=== PATIENT | male | born 1940 | race Caucasian/White ===

== ENCOUNTER 2020-05-10 12:20 | Emergency (ER) | payer OTHER ==
--- OUTSIDE RECORDS SUMMARY | 2020-05-10 12:24 | XMS REPORT | Continuity of Care Document ---
:1940 Author Organization [facility] t Address [address] [place] [address] Dr. Massey [address] [place] [id number] Care Team Providers Name Role Phone LOIDA Attending Clinician Unavailable Problems This patient has no known problems. Allergies, Adverse Reactions, Alerts This patient has no known allergies or adverse reactions. Medications This patient has no known medications. Procedures This patient has no known procedures. Encounters Start End Encounter Admission Attending Care Care Encounter Source Date/Time Date/Time Type Type Clinicians Facility Department ID 2020-04-16 2020-04-16 Outpatient SHANIKA MARISCAL [facility] [id number] [place] 00:00:00 00:00:[address] 2020-04-15 2020-04-15 Outpatient SHANIKA MARISCAL [facility] [id number] [place] 00:00:00 00:00:[address] 2020-04-05 2020-04-05 Outpatient [facility] [id number] [place] 00:00:00 00:00:[address] 2020-03-18 2020-03-18 Outpatient [facility] [id number] [place] 00:00:00 00:00:[address] Results This patient has no known results.
--- NOTE | 2020-05-10 16:50 | RAD REPORT ---
EXAM DESCRIPTION: CT - Chest For Pe Angio - 05/10/2020 4:36 pm CLINICAL HISTORY: Chest pain. Recent cancer history;Dyspnea COMPARISON: Thorax Wo Con dated 11/03/2018; Thorax Wo Con dated 05/05/2018; Kidney Imag W/Flow F W lynda ed 03/26/2016; Abdomen Pelvis W Contrast dated 05/10/2020 TECHNIQUE: CT angiogram of the pulmonary arteries was performed with MIP. All CT scans are performed using dose optimization technique as appropriate and may include automated exposure control or mA/KV adjustment according to patient size. FINDINGS: No evidence of pulmonary thromboembolism. No acute aortic finding demonstrated. Mild diffuse COPD is present. Postsurgical changes are present right suprahilar region. No significant pericardial or pleural fluid. No concerning bony finding. Moderate to large hiatal hernia. IMPRESSION: No evidence of pulmonary thromboembolism. Mild diffuse COPD is present.
--- NOTE | 2020-05-10 16:56 | RAD REPORT ---
EXAM DESCRIPTION: CTAbdomen Pelvis W Contrast - 05/10/2020 4:36 pm CLINICAL HISTORY: Abdominal pain. cancer. Per request of Dr. Chaudhry COMPARISON: Chest Abdomen Pelvis W Cont dated 02/20/2016; Stone Protocol dated 01/12/2016; Kidney Im ag W/Flow F W dated 03/26/2016; Chest Single View dated 02/24/2016; Ct Low Dose Chest Screening dated 09/23; Thorax Wo Con dated 05/05/2018; Thorax Wo Con dated 11/03/2018 TECHNIQUE: Biphasic CT imaging of the abdomen and pelvis was performed with 100 ml non-ionic IV cont rast. All CT scans are performed using dose optimization technique as appropriate and may include automated exposure control or mA/KV adjustment according to patient size. FINDINGS: The lower lung pederson are emphysematous.Moderate to large axial hiatal hernia. The liver, spleen, pancreas, adrenal glands and kidneys are within normal limits. 5.8 cm infrarenal abdominal aortic aneurysm is present. 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 This is enlarged from 4.1 cm in 2016. No bowel obstruction, free air, free fluid or abscess. There is significant stool in the colon. Nonvi sualized appendix. No evidence of significant lymphadenopathy. Moderately severe lumbar degenerative changes. IMPRESSION: There has been significant enlargement of infrarenal abdominal aortic aneurysm since from 4.1 cm to 5.8 cm in the same anterior posterior dimension.
--- NOTE | 2020-05-10 17:43 | EDPHYS ---
Physician Documentation [facility] Name: Clay Hernández Age: 79 yrs Sex: Male : 1940 Arrival Date: 05/10/2020 Time: 12:22 Bed 26 Private MD: Tejas Chaudhry V ED Physician Alen Esparza HPI: 05/10 17:35 This 79 yrs old Male presents to ER via Ambulatory with complaints of labs. jr8 17:35 Patient stated that he was sent over by Dr. Chaudhry after having abnormal DD reading. jr8 Stated that when he saw him the other day he had some mild shortness of breath. Had two primary cancers in past both of which had been surgically removed and doing well. Denies any symptoms at this time. Dr. Chaudhry called and wanted dopplers of the lower legs and CT PE. The patient has not experienced similar symptoms in the past. The patient has been recently seen by a physician:. Historical: - Allergies: 13:01 No Known Allergies; ca1 - PMHx: 13:01 Bladder cancer; Cancer, Lung; High Cholesterol; Hypertension; Kidney stones; Parkinsons;ca1 13:01 CAD; ca1 - PSHx: 13:01 Lithotripsy; bladder sx; Lobectomy; RUL removed; ca1 - Immunization history:: Flu vaccine is up to date. - Social history:: Smoking status: Patient/guardian denies using tobacco, the patient reports quitting approximately 11 years ago. ROS: 17:35 Cardiovascular: Negative for chest pain, palpitations, and edema, Respiratory: Negative jr8 for shortness of breath, cough, wheezing, and pleuritic chest pain, Abdomen/GI: Negative for abdominal pain, nausea, vomiting, diarrhea, and constipation, Back: Negative for injury and pain, Neuro: Negative for headache, weakness, numbness, tingling, and seizure. 17:35 All other systems are negative. Exam: 17:35 Constitutional: This is a well developed, well nourished patient who is awake, alert, jr8 and in no acute distress. Neck: Trachea midline, no thyromegaly or masses palpated, and no cervical lymphadenopathy. Supple, full range of motion without nuchal rigidity, or vertebral point tenderness. No Meningismus. Chest/axilla: Normal chest wall appearance and motion. Nontender with no deformity. No lesions are appreciated. Cardiovascular: Regular rate and rhythm with a normal S1 and S2. No gallops, murmurs, or rubs. Normal PMI, no JVD. No pulse deficits. Respiratory: Lungs have equal breath sounds bilaterally, clear to auscultation and percussion. No rales, rhonchi or wheezes noted. No increased work of breathing, no retractions or nasal flaring. Abdomen/GI: Soft, non-tender, with normal bowel sounds. No distension or tympany. No guarding or rebound. No evidence of tenderness throughout. Back: No spinal tenderness. No costovertebral tenderness. Full range of motion. Skin: Warm, dry with normal turgor. Normal color with no rashes, no lesions, and no evidence of cellulitis. MS/ Extremity: Pulses equal, no cyanosis. Neurovascular intact. Full, normal range of motion. Neuro: Awake and alert, GCS 15, oriented to person, place, time, and situation. Cranial nerves II-XII grossly intact. Motor strength 5/5 in all extremities. Sensory grossly intact. Cerebellar exam normal. Normal gait. Vital Signs: 12:58 BP 134 / 84; Pulse 87; Resp 16 S; Temp 97.4(TE); Pulse Ox 98% on R/A; Weight 86.18 kg ca1 (R); Height 5 ft. 10 in. (177.80 cm) (R); Pain 0/10; 15:28 BP 145 / 85; Pulse 76; Resp 16; Pulse Ox 99% on R/A; vg1 16:30 BP 132 / 89; Pulse 77; Resp 18; Pulse Ox 98% on R/A; vg1 17:00 BP 117 / 88; Pulse 78; Resp 16; Pulse Ox 99% on R/A; vg1 12:58 Body Mass Index 27.26 (86.18 kg, 177.80 cm) ca1 MDM: 15:31 Patient medically screened. jr8 15:41 The patient's pulmonary embolism risk score was calculated as follows: No Risks (0 Pts).jr8 17:35 Data reviewed: vital signs, nurses notes, radiologic studies, CT scan, ultrasound. Data jr8 interpreted: Pulse oximetry: on room air is 98 %. Interpretation: normal. Counseling: I had a detailed discussion with the patient and/or guardian regarding: the historical points, exam findings, and any diagnostic results supporting the discharge/admit diagnosis, radiology results, the need for outpatient follow up, a manager room, to return to the emergency department if symptoms worsen or persist or if there are any questions or concerns that arise at home. ED course: Discussed with patient and Dr. Chaudhry that he does not have PE but does have significant enlargement in aortic aneurysm. Will refer to cardiology for f/u. Patient good with this. 05/10 15:57 Order name: CT Chest For PE Angio; Complete Time: 16:58 [facility] 05/10 15:57 Order name: CT Abd/Pelvis - IV Contrast Only; Complete Time: 16:58 8 05/10 15:57 Order name: IV; Complete Time: 16:14 [facility] 05/10 17:10 Order name: US Extremity Venous W Compression Harry jr8 Administered Medications: No medications were administered Disposition: 18:47 Co-signature as Attending Physician, Alen Esparza MD I agree with the assessment and kdr plan of care. Disposition: 05/10/20 17:41 Discharged to Home. Impression: Abdominal aortic aneurysm, without rupture. - Condition is Stable. - Discharge Instructions: Abdominal Aortic Aneurysm. - Medication Reconciliation Form, Thank You Letter, Antibiotic Education, Prescription Opioid Use form. - Follow up: Tejas Chaudhry MD; When: As needed; Reason: Recheck today's complaints, Continuance of care, Re-evaluation by your physician. Follow up: Maurilio Mondragon MD; When: 1 - 2 days; Reason: Recheck today's complaints, Continuance of care, Re-evaluation by your physician. - Problem is new. - Symptoms have improved. Signatures: Dispatcher [employer] EDMS Alen Esparza MD MD kdr Roszak, Josh, PA PA jr8 Marsha Andrews RN RN ca1 Sofía Quintana RN RN vg1 Corrections: (The following items were deleted from the chart) 18:06 17:41 05/10/2020 17:41 Discharged to Home. Impression: Abdominal aortic aneurysm, vg1 without rupture. Condition is Stable. Forms are Medication Reconciliation Form, Thank You Letter, Antibiotic Education, Prescription Opioid Use. Follow up: Tejas Chaudhry; When: As needed; Reason: Recheck today's complaints, Continuance of care, Re-evaluation by your physician. Follow up: Maurilio Mondragon; When: 1 - 2 days; Reason: Recheck today's complaints, Continuance of care, Re-evaluation by your physician. Problem is new. Symptoms have improved. jr8
--- NOTE | 2020-05-10 17:43 | ER ---
Nurse's Notes [facility] Name: Clay Hernández Age: 79 yrs Sex: Male : 1940 Arrival Date: 05/10/2020 Time: 12:22 Bed 26 Private MD: Tejas Chaudhry V Diagnosis: Abdominal aortic aneurysm, without rupture Presentation: 05/10 12:58 Chief complaint: Patient states: Routine blood work done 05/08/2020, was called by Dr. crys Chaudhry's office to come to the ER. Unsure which blood work result is/are abnormal. Denies pain. Denies any complaints at this time. They said Dr. Chaudhry said he wants me to get a D-dimer test. Coronavirus screen: Client denies travel out of the [place] in the last 14 days. At this time, the client does not indicate any symptoms associated with coronavirus-19. Ebola Screen: Patient negative for fever greater than or equal to 101.5 degrees Fahrenheit, and additional compatible Ebola Virus Disease symptoms Patient denies exposure to infectious person. Patient denies travel to an Ebola-affected area in the 21 days before illness onset. No symptoms or risks identified at this time. Initial Sepsis Screen: Does the patient meet any 2 criteria? No. Patient's initial sepsis screen is negative. Does the patient have a suspected source of infection? No. Patient's initial sepsis screen is negative. Risk Assessment: Do you want to hurt yourself or someone else? Patient reports no desire to harm self or others. Onset of symptoms was May 10, 2020. 12:58 Method Of Arrival: Ambulatory ca1 12:58 Acuity: GLORY 3 ca1 Historical: - Allergies: 13:01 No Known Allergies; ca1 - PMHx: 13:01 Bladder cancer; Cancer, Lung; High Cholesterol; Hypertension; Kidney stones; Parkinsons;ca1 13:01 CAD; ca1 - PSHx: 13:01 Lithotripsy; bladder sx; Lobectomy; RUL removed; ca1 - Immunization history:: Flu vaccine is up to date. - Social history:: Smoking status: Patient/guardian denies using tobacco, the patient reports quitting approximately 11 years ago. Screenin:28 Abuse screen: Denies threats or abuse. Nutritional screening: No deficits noted. vg1 Tuberculosis screening: No symptoms or risk factors identified. Fall Risk No fall in past 12 months (0 pts). No secondary diagnosis (0 pts). IV access (20 points). Ambulatory Aid- None/Bed Rest/Nurse Assist (0 pts). Gait- Normal/Bed Rest/Wheelchair (0 pts) Mental Status- Oriented to own ability (0 pts). Total Fisher Fall Scale indicates No Risk (0-24 pts). Assessment: 15:27 General: Appears in no apparent distress. distressed, Behavior is calm, cooperative. vg1 Pain: Denies pain. Neuro: Level of Consciousness is awake, alert, obeys commands, Oriented to person, place, time, situation. Cardiovascular: Patient's skin is warm and dry. Respiratory: Airway is patent Respiratory effort is even, unlabored, Breath sounds are clear bilaterally. GI: No signs and/or symptoms were reported involving the gastrointestinal system. : No signs and/or symptoms were reported regarding the genitourinary system. EENT: No signs and/or symptoms were reported regarding the EENT system. Derm: Skin is intact, Skin is pink, warm \T\ dry. Musculoskeletal: Circulation, motion, and sensation intact. 16:50 Reassessment: Patient appears in no apparent distress at this time. No changes from vg1 previously documented assessment. Patient and/or family updated on plan of care and expected duration. Pain level reassessed. Patient is alert, oriented x 3, equal unlabored respirations, skin warm/dry/pink. Patient denies pain at this time. 17:48 Reassessment: Pt up for d/c, US still at bedside. vg1 Vital Signs: 12:58 BP 134 / 84; Pulse 87; Resp 16 S; Temp 97.4(TE); Pulse Ox 98% on R/A; Weight 86.18 kg ca1 (R); Height 5 ft. 10 in. (177.80 cm) (R); Pain 0/10; 15:28 BP 145 / 85; Pulse 76; Resp 16; Pulse Ox 99% on R/A; vg1 16:30 BP 132 / 89; Pulse 77; Resp 18; Pulse Ox 98% on R/A; vg1 17:00 BP 117 / 88; Pulse 78; Resp 16; Pulse Ox 99% on R/A; vg1 12:58 Body Mass Index 27.26 (86.18 kg, 177.80 cm) ca1 ED Course: 12:22 Patient arrived in ED. am2 12:23 Tejas Chaudhry MD is Private Physician. am2 13:00 Triage completed. ca1 13:01 Arm band placed on right wrist. ca1 15:02 Sofía Quintana, RN is Primary Nurse. vg1 15:28 Patient has correct armband on for positive identification. Bed in low position. Call vg1 light in reach. Side rails up X 1. 15:31 Jordy Bach PA is PHCP. jr8 15:31 Alen Esparza MD is Attending Physician. jr8 16:[address] via wheelchair. vg1 16:38 CT Chest For PE Angio In Process Unspecified. EDMS 16:38 CT Abd/Pelvis - IV Contrast Only In Process Unspecified. EDMS 17:25 US at bedside. vg1 17:39 Tejas Chaudhry MD is Referral Physician. jr8 17:39 Maurilio Mondragon MD is Referral Physician. jr8 17:50 US leaving pt bedside. vg1 18:06 No provider procedures requiring assistance completed. IV discontinued, intact, vg1 bleeding controlled, No redness/swelling at site. Pressure dressing applied. 18:58 US Extremity Venous W Compression Harry In Process Unspecified. EDMS Administered Medications: No medications were administered Outcome: 17:41 Discharge ordered by . jr8 18:06 Discharged to home ambulatory. vg1 18:06 Condition: good 18:06 Discharge instructions given to patient, Instructed on discharge instructions, follow up and referral plans. Demonstrated understanding of instructions, follow-up care. 18:06 Patient left the ED. vg1 Signatures: Dispatcher [employer] EDMS Jordy Bach PA PA jr8 Jazmine Pichardo am2 Marsha Andrews RN RN ca1 Sofía Quintana, RN RN vg1
[2020-05-10 18:14] VITALS: TEMP 97.4
[2020-05-10 18:18] VITALS: BP 117/88; O2SAT 99
--- NOTE | 2020-05-10 19:25 | RAD REPORT ---
EXAM DESCRIPTION: US - Extrem Venous W Compress Harry - 05/10/2020 6:58 pm CLINICAL HISTORY: SWELLING Bilateral leg edema and swelling. COMPARISON: No comparisons TECHNIQUE: Real-time sonographic interrogation of the left and right lower extremity deep venous sys tems was performed. FINDINGS: Normal compressibility, flow augmentation, phasic flow and spontaneous flow is identified in both the left and right lower extremity deep venous systems. IMPRESSION: No sonographic evidence of left or right lower extremity deep venous thrombosis.
== END 2020-05-10 18:06 | disposition home or self-care (01) ==
LOC: ER 12:20
DX: I71.4 Abdominal aortic aneurysm, without rupture (principal); I10 Essential (primary) hypertension; G20 Parkinson's disease; Z85.51 Personal history of malignant neoplasm of bladder; Z85.118 Personal history of other malignant neoplasm of bronchus and lung
CPT/HCPCS: 82565; 71275; 74177; 93970; 99284; Q9967

== ENCOUNTER 2021-01-03 07:08 | Day surgery (SDC) | payer OTHER ==
[2020-12-26 14:12] LABS: Potassium 4.3 mmol/L (3.5-5.1)
[2020-12-26 14:14] LABS: Protime INR 1.03
--- NOTE | 2020-12-26 14:21 | RAD REPORT ---
EXAM DESCRIPTION: RAD - Chest Pa And Lat (2 Views) - 12/26/2020 1:56 pm CLINICAL HISTORY: Pre op pending heart cath COMPARISON: Chest Pa And Lat (2 Views) dated 09/23/2016; Chest Single View dated 02/24/2016; Chest Pa An d Lat (2 Views) dated 02/19/2016; CHEST PA AND LAT 2 VIEW dated 07/09/2014 FINDINGS: Lines: None. Lungs: No evidence of edema or pneumonia. Pleural: Small right pleural effusion. This is seen on the lateral view. Cardiac: The heart size is within normal limits. Bones: No acute fractures. Other: IMPRESSION: Small right pleural effusion. The lungs are otherwise clear.
[2020-12-26 14:27] LABS: Absolute Lymphocytes (CBC) 0.9 K/uL (0.7-4.9); Basophils % 0.6 % (0-1.3); Hematocrit 35.4 % (39.6-49.0); Lymphocytes % 15.8 % (15.3-44.8); MPV 7.2 fL (7.6-11.3); RBC Red Blood Cell Count 3.67 M/uL (4.33-5.43)
[2021-01-03] MEDS ORDERED: NA CHLORIDE 0.9% 500 ML ONE (07:09)
[2021-01-03] MEDS ORDERED: FENTANYL CITR 100 MCG/2 ML ONE (07:44)
[2021-01-03] MEDS ORDERED: HEPA 1000U/500MLS 2,000 UNIT/1,000 ML BAG IV ONE (07:44)
[2021-01-03] MEDS ORDERED: LIDOCAINE 1% 20 ML MDV ONE (07:44)
[2021-01-03] MEDS ORDERED: VERAPAMIL HCL 10 MG/4 ML VIAL IV ONE (07:44)
[2021-01-03] MEDS ORDERED: MIDAZOLAM HCL 2 MG/2 ML INJ ONE (07:44)
[2021-01-03] MEDS ORDERED: HEPARIN 5000 UNIT/ML 1 ML VIAL ONE (07:45)
[2021-01-03] MEDS ORDERED: ATROPINE SULF 1 MG/10 ML SYR IV ONE (07:45)
--- NOTE | 2021-01-03 08:57 | OP ---
Date of Procedure: 01/03/2021 Surgeon: GENE HEAD Procedure Performed: Selective coronary angiogram. Access: Right radial artery 6-Malawian closed with TR band. Complications: None. Bleeding: Less than 10 mL. Description Of Procedure: After risks, benefits, and alternatives were explained, the patient agreed to procedure and signed informed consent. The patient was brought in the cardiac catheterization la boratory, prepped and draped in usual sterile fashion. Then, we accessed right radial artery using p PeptiVir micropuncture kit and placed a 6-Malawian Slender sheath. Then, took a 5-Malawian [place] 4.0 cat heter in the aortic root, engaged left main and right coronary artery, took standard views. Then, we removed the catheter and sheath, placed TR band with good hemostasis. Findings: 1.Left main; short with luminal irregularities. 2.LAD; proximal diffuse, 20% to 30% stenosis in midportion with just luminal irregularities. Diagon al branches with luminal irregularities and distal LAD has focal 30% stenosis. 3.Left circumflex; large with OM 1 branch has a 40% proximal disease. No other disease in the circ. 4.RCA; proximal [employer] with excellent collaterals going from the LAD, fills all the way into the PLB an d PDA. Conclusion: Coronary artery disease as above. Plan: Medical management. /STORMY Voice ID: [id number] Report ID: [id number]
[2021-01-03 12:29] VITALS: BP 159/82; TEMP 97.9; O2SAT 99
== END 2021-01-03 11:18 | disposition home or self-care (01) ==
LOC: PRE 07:08 → CCL 11:18
PROVIDERS: ATTEND Internal Medicine
DX: I25.10 Atherosclerotic heart disease of native coronary artery without angina pectoris (principal); I25.82 Chronic total occlusion of coronary artery; I71.4 Abdominal aortic aneurysm, without rupture; I10 Essential (primary) hypertension; E78.5 Hyperlipidemia, unspecified; Z87.891 Personal history of nicotine dependence; Z01.810 Encounter for preprocedural cardiovascular examination; Z20.822 Contact with and (suspected) exposure to COVID-19
CPT/HCPCS: 85025; 80048; 36415; 85610; 85730; 71046; 93454; U0003; J1644 ×2; J2250; J3010; J7040

== ENCOUNTER 2022-11-06 08:00 | Day surgery (SDC) | payer OTHER ==
--- NOTE | 2022-11-02 11:02 | RAD REPORT ---
EXAM DESCRIPTION: RAD - Chest Pa And Lat (2 Views) - 11/02/2022 10:48 am CLINICAL HISTORY: pre op pending heart catheterization, hypertension COMPARISON: Chest Pa And Lat (2 Views) dated 12/26/2020; Chest Pa And Lat (2 Views) dated 09/23/2016; C hest Single View dated 02/24/2016; Chest Pa And Lat (2 Views) dated 02/19/2016; Chest For Pe Angio date d 05/10/2020 FINDINGS: Lines: None. Lungs: No evidence of edema or pneumonia. Pleural: Chronic blunting of the right costophrenic angle on the lateral view. Cardiac: The heart size is within normal limits. Mediastinum: Within normal limits. Bones: No acute fractures. Other: None IMPRESSION: No acute cardiopulmonary disease.
[2022-11-02 11:19] LABS: Absolute Lymphocytes (CBC) 0.8 K/uL (0.7-4.9); Hematocrit 37.1 % (39.6-49.0); Lymphocytes % 14.9 % (15.3-44.8); MCV 97.5 fL (80-100); MPV 7.5 fL (7.6-11.3); Platelets 184 thou/uL (152-406); RBC Red Blood Cell Count 3.81 M/uL (4.33-5.43)
[2022-11-02 11:28] LABS: Potassium 4.4 mEq/L (3.5-5.1)
[2022-11-02 11:29] LABS: Protime INR 1.04
--- NOTE | 2022-11-02 17:05 | EKG ---
Test Date: 2022-11-02 Test Time: 10:31:14 Citrus Fruit Colorer: TON MEASUREMENT RESULTS: Intervals: Rate: 61 CA: 104 QRSD: 94 QT: 416 QTc: [address]: P: 3 CA: 104 QRS: 12 T: 67 INTERPRETIVE STATEMENTS: Sinus rhythm with short CA with premature atrial complexes Otherwise normal ECG Compared to ECG 12/26/2020 12:41:09 Short CA interval now present Electronically Signed On 11-02-22 17:04:25 CDT by Tony Viveros
[2022-11-06] MEDS ORDERED: NA CHLORIDE 0.9% 500 ML ONE (08:31)
[2022-11-06] MEDS ORDERED: HEPA 1000U/500MLS 2,000 UNIT/1,000 ML BAG IV ONE (09:40)
[2022-11-06] MEDS ORDERED: LIDOCAINE 1% 20 ML MDV ONE (09:40)
[2022-11-06] MEDS ORDERED: HEPARIN 5000 UNIT/ML 1 ML VIAL ONE (09:41)
[2022-11-06] MEDS ORDERED: MIDAZOLAM HCL 2 MG/2 ML INJ ONE (09:41)
[2022-11-06] MEDS ORDERED: FENTANYL CITR 100 MCG/2 ML ONE (09:41)
[2022-11-06] MEDS ORDERED: NITROGLYCERIN 100 MCG/ML SYR (for cath lab use only) IV ONE (09:42)
[2022-11-06] MEDS ORDERED: HEPARIN 10,000 UNIT/10 ML VIAL IV ONE (09:42)
[2022-11-06] MEDS ORDERED: VERAPAMIL HCL 10 MG/4 ML VIAL IV ONE (09:42)
[2022-11-06] MEDS ORDERED: ATROPINE SULF 1 MG/10 ML SYR IV ONE (09:42)
[2022-11-06] MEDS ORDERED: CLOPIDOGREL 75 MG TABLET ONE (09:43)
[2022-11-06] MEDS ORDERED: TICAGRELOR 90 MG TABLET PO ONE (09:43)
[2022-11-06] MEDS ORDERED: ASPIRIN 325 MG TAB ONE (11:32)
[2022-11-06 14:07] VITALS: TEMP 97
[2022-11-06 15:14] VITALS: O2SAT 99
[2022-11-06 16:18] VITALS: BP 147/82
--- NOTE | 2022-11-06 18:21 | OP ---
Date of Procedure: 11/06/2022 Surgeon: GENE HEAD Procedures Performed: 1.Selective coronary angiogram. 2.PCI of severe mid to distal LAD stenosis. I used 2.75 x 12 and overlapped with another one 2.75 x 12 mm, I used two stents overlapped to each other. Indication: Chest pain with abnormal stress test. Access: 1.Right radial artery 6-Vincentian closed with TR band. 2.Right femoral artery 6-Vincentian closed with 6-Vincentian Angio-Seal. Complications: None. Bleeding: Less than 50 mL. Anesthesia: Total sedation time was 1 hour. Description Of Procedure: After risks, benefits, and alternatives were explained, patient agreed to procedure and signed informed consent. Patient was brought into the cardiac catheterization laborato ry, prepped and draped in the usual sterile fashion. Then I accessed right radial artery using pedia tric micropuncture kit, placed a 6-Vincentian Slender sheath and took 5-Vincentian [place] 4 catheter into the aortic root and could not pass due to tortuosity through the subclavian artery and the brachiocephali c artery, so I aborted the access and then accessed the right femoral artery using micropuncture kit, fluoroscopy and ultrasound guidance and placed 6-Vincentian [place] sheath and took 6-Vincentian JL5 cathet er to engage the left main and could not get any good pictures, then I took 6-Vincentian JR4 catheter, en gaged the RCA, took standard views and then I exchanged for 6-Vincentian EBU 3.5 guide, engaged the left main, took standard views and then gave systemic heparin to assure ACT level above 250 and gave 600 m g of Plavix and 325 mg of aspirin and then I took a short Runthrough wire into the LAD and placed it distally. Lesions were predilated using a 2.5 and 3.0 balloon and then I placed 2.75 x 12 mm Synergy drug-eluting stent and there was a mild dissection on the proximal edge, so I placed another 2.75 x 12 mm Synergy drug-eluting stent with excellent expansion, excellent angiographic results after remov ing the wire. Then I removed the guide and the sheath and placed a 6-Vincentian Angio-Seal for closure w ith good hemostasis and the radial sheath was removed and placed the TR band for closure with good he mostasis. Findings: 1.Left main; large and normal. 2.LAD; large vessel with proximal luminal irregularities. Mid 50%, 2 tandem lesions. Diagonal bran ch #1 has 60% diffuse disease and then the LAD mid to distal, there is 70% and then 80% stenosis, sta tus post successful PCI as above and the LAD gives collaterals to the PDA. 3.Left circumflex; large vessel with OM1 branch being the largest, has 2 tandem lesions, each of the m has 50% stenosis and the RCA is totally occluded proximally. Conclusion: 1.Total occlusion of proximal RCA with collaterals from the LAD. 2.Severe mid to distal LAD stenosis, status post successful PCI as above. 3.Moderate coronary artery disease elsewhere. Plan: 1.Aspirin, Plavix, and statin. 2.Stress test in 1 year. SR/MODL Voice ID: [id number] Report ID: [id number]
== END 2022-11-06 16:00 | disposition home or self-care (01) ==
LOC: CCL 08:00
PROVIDERS: ATTEND Internal Medicine
DX: I25.10 Atherosclerotic heart disease of native coronary artery without angina pectoris (principal); I25.82 Chronic total occlusion of coronary artery; I71.40 Abdominal aortic aneurysm, without rupture, unspecified; I10 Essential (primary) hypertension; E78.5 Hyperlipidemia, unspecified; Z87.891 Personal history of nicotine dependence; Z79.82 Long term (current) use of aspirin; Z79.899 Other long term (current) drug therapy
CPT/HCPCS: 93005; 85025; 80048; 36415; 85610; 85347; 85730; 71046; 93454; 76937; C1893; Q9966; C1760; G0269; C1725; C9600; J1644; J2001; J2250; J3010; J7040; J0461

== ENCOUNTER 2024-04-25 11:11 | Inpatient (IN) | payer OTHER ==
[2024-04-25] MEDS ORDERED: LEVALBUTEROL 1.25 MG/3 ML NEB ONE (12:10)
[2024-04-25 12:15] LABS: Absolute Lymphocytes (CBC) 0.7 K/uL (0.7-4.9); Absolute Monocytes 0.5 K/uL (0.1-1.3); Absolute Neutrophil 6.6 K/uL (1.8-8.0); Basophils % 0.3 % (0-1.3); Eosinophils % 0.3 % (0-4.4); Hematocrit 41.9 % (39.6-49.0); Hemoglobin 14.5 g/dL (13.6-17.9); Lymphocytes % 9.1 % (15.3-44.8); MCH 32.9 pg (27.0-35.0); MCHC 34.6 g/dL (32.0-36.0); MCV 95.1 fL (80-100); Monocytes % 6.4 % (3.3-12.3); Neutrophils % 83.9 % (41.7-73.7); Platelets 232 thou/uL (152-406); RBC Red Blood Cell Count 4.41 M/uL (4.33-5.43); Red Cell Distribution Width 13.3 % (12.1-15.2)
[2024-04-25 12:23] LABS: PT Prothrombin Time 12.2 SECONDS (10.0-13.0); PTT, Activated Partial Thromb 35.1 SECONDS (24.3-36.9); Protime INR 1.07
--- NOTE | 2024-04-25 12:25 | RAD REPORT ---
EXAMINATION: ONE VIEW CHEST XR CLINICAL INDICATION: Fever;Dyspnea;Cough TECHNIQUE: Frontal chest projection is submitted. Examination is limited by patient positioning and t echnique. COMPARISON: 03/03/2024 FINDINGS: Hazy opacification seen right hemithorax, with fullness in the right hilar region. This may represent infection or atelectasis. Left lung is diffusely emphysematous. The heart is mildly prominent in size. No displaced fractures identified. Consider CT chest follow-up to better assess the right basilio thorax findings.
[2024-04-25 12:33] LABS: AST/SGOT 21 U/L (15-37); Albumin 3.4 g/dL (3.4-5.0); Albumin/Globulin Ratio 0.7 (1.1-1.8); Alkaline Phosphatase 97 U/L (45-117); Anion Gap 8.2 mEq/L (5.0-15.0); BUN Blood Urea Nitrogen 17 mg/dL (7-18); Bicarbonate 27 mEq/L (21-32); Bilirubin Total 0.5 mg/dL (0.2-1.0); Globulin 4.6 g/dL (2.3-3.5); Glomerular Filtration Rate 65 ml/min (=/>90); Glucose Level 123 mg/dL (74-106); Influenza A Ag Negative; Influenza B Ag Negative; Potassium 4.2 mEq/L (3.5-5.1); SARS-CoV-2 Antigen Rapid Res Negative (Negative); Sodium Level 136 mEq/L (136-145)
[2024-04-25 12:34] LABS: ALT/SGPT < 14 U/L (16-61)
--- NOTE | 2024-04-25 12:53 | EDPHYS ---
Physician Documentation [facility] Name: Clay Hernández Age: 83 yrs Sex: Male : 1940 Arrival Date: 04/25/2024 Time: 11:11 Bed 3 Private MD: ED Physician Aleks Haq HPI: 04/25 12:50 This 83 yrs old Male presents to ER via Ambulatory with complaints of Breathing rn Difficulty, Cough, Fever. 12:50 The patient has shortness of breath at rest, with light activity. rn 12:51 Onset: The symptoms/episode began/occurred yesterday. The patient's shortness of breath rn is aggravated by coughing, exertion, light activity. Severity of symptoms: At their worst the symptoms were moderate in the emergency department the symptoms are unchanged. The patient has not experienced similar symptoms in the past. Historical: - Allergies: 11:41 No Known Allergies; ss - PMHx: 11:41 Bladder cancer; CAD; Cancer; High Cholesterol; Hypertension; Parkinsons; Kidney stones; ss - Immunization history:: Adult Immunizations up to date. - Infectious Disease History:: Denies. - Social history:: Smoking status: Patient reports the use of cigarette tobacco products, smokes one-half pack cigarettes per day. - Family history:: not pertinent. - Hospitalizations: : No recent hospitalization is reported. ROS: 12:51 Constitutional: Positive for fever and chills Cardiovascular: Negative for chest pain, rn palpitations, and edema, Respiratory: Positive for cough and shortness of breath Abdomen/GI: Negative for abdominal pain, nausea, vomiting, diarrhea, and constipation, MS/Extremity: Negative for injury and deformity, Neuro: Positive for headache and generalized malaise Exam: 12:51 Constitutional: This is a well developed, well nourished patient who is awake, alert, rn moderate tachypnea Cardiovascular: Regular rate and rhythm. No pulse deficits. Respiratory: Moderate tachypnea, diminished at bases, faint wheezing Abdomen/GI: Soft, non-tender MS/ Extremity: Pulses equal, no cyanosis. Neurovascular intact. Full, normal range of motion. Equal circumference. Neuro: Awake and alert, GCS 15 16:43 ECG was reviewed by the Attending Physician. rn Vital Signs: 11:38 BP 165 / 111; Pulse 89; Resp 22; Temp 97.5(O); Pulse Ox 93% on R/A; Weight 68.04 kg; ss Height 5 ft. 9 in. ; Pain 10/10; 12:35 BP 154 / 87; Pulse 76; Pulse Ox 100% on R/A; rs6 11:38 Body Mass Index 22.15 (68.04 kg, 175.26 cm) ss 11:38 Pain Scale: Adult ss MDM: 11:22 Medical Screening Exam initiated rn 12:51 Differential diagnosis: Chronic Obstructive Pulmonary Disease Myocardial Infarction rn pneumonia, Pneumothorax pulmonary edema. Data reviewed: vital signs, nurses notes, lab test result(s), radiologic studies, plain films, and as a result, I will admit patient. Consideration of Admission/Observation Patient was admitted/placed on observation. Escalation of care including admission/observation considered. Counseling: I had a detailed discussion with the patient and/or guardian regarding the historical points, exam findings, and any diagnostic results supporting the discharge/admit diagnosis, lab results, radiology results, the need for further work-up and treatment in the hospital. Response to treatment: the patient's symptoms have mildly improved after treatment. 04/25 11:43 Order name: Blood Culture Adult (2) rn 04/25 11:43 Order name: CBC with Diff; Complete Time: 12:45 rn 04/25 11:43 Order name: CMP; Complete Time: 12:45 rn 04/25 11:43 Order name: Lactate w/ 2H reflex if indic.; Complete Time: 12:45 rn 04/25 11:43 Order name: Protime (+inr); Complete Time: 12:45 rn 04/25 11:43 Order name: Ptt, Activated; Complete Time: 12:45 rn 04/25 11:43 Order name: COVID-19 Ag + Flu A+B Ag; Complete Time: 12:45 rn 04/25 11:43 Order name: Chest Single View XRAY; Complete Time: 12:45 rn 04/25 11:43 Order name: Accucheck; Complete Time: 12:04 rn 04/25 11:43 Order name: Cardiac monitoring; Complete Time: 12:04 rn 04/25 11:43 Order name: EKG - Nurse/Tech; Complete Time: 12:04 rn 04/25 11:43 Order name: IV Saline Lock - Large Bore; Complete Time: 12:04 rn 04/25 11:43 Order name: Labs collected and sent; Complete Time: 12:04 rn 04/25 11:43 Order name: O2 Per Protocol; Complete Time: 12:04 rn 04/25 11:43 Order name: O2 Sat Monitoring; Complete Time: 12: rn 04/25 11:43 Order name: Vital Signs; Complete Time: 12:04 rn EC:43 Rate is 78 beats/min. Rhythm is regular. QRS [place] is Normal. [place] interval is normal. QRS rn interval is normal. QT interval is normal. No Q waves. T waves are Normal. No ST changes noted. Clinical impression: NSR w/ Non-specific ST/T Changes. Interpreted by me. Reviewed by me. Administered Medications: 12:15 Drug: Levalbuterol Inhalation 1.25 mg Inhalation once Route: Inhalation; bp 13:15 Drug: Rocephin IV 1 grams IV at calculated rate once; Given slow IV push per pharmacy bp instructions Route: IV; Rate: calculated rate; Site: right forearm; 17:19 Follow up: IV Status: Completed infusion bp 13:15 Drug: Zithromax IVPB 500 mg IVPB once over 1 hrs; mix in 250 mL NS Route: IVPB; Infused bp Over: 1 hrs; Site: right forearm; 17:19 Follow up: IV Status: Completed infusion bp Disposition Summary: 04/25/24 12:52 Hospitalization Ordered Notes: Hospitalization Status: Inpatient Admission rn Provider: Tejas Chaudhry rn Condition: Stable rn Problem: new rn Symptoms: have improved rn Bed/Room Type: Standard rn Location: Telemetry/MedSurg (Inpatient)(04/25/24 20:48) Room Assignment: [facility](04/25/24 20:48) Diagnosis - Pneumonia, unspecified organism rn - Hypoxemia rn Forms: - Medication Reconciliation Form rn - SBAR form rn - Leadership Thank You Letter rn Signatures: Dispatcher [employer] LENACA Aleks Haq MD MD rn Blanchard, Shelby, RN RN ss Michelle Quintana RN RN cg Peltier, Brian, TOBY RN Shannon Baker DIANA, RN RN dd2 Corrections: (The following items were deleted from the chart) 11:42 11:41 PMHx: Cancer; [facility] 11:43 11:43 BLOOD CULTURE*+BA.LAB.BRZ ordered. EDMS EDMS 11:43 11:43 CBC+H.LAB.BRZ ordered. EDMS EDMS 11:43 11:43 COMPREHENSIVE METABOLIC PANEL+C.LAB.BRZ ordered. EDMS EDMS 11:43 11:43 LACTATE+C.LAB.BRZ ordered. EDMS EDMS 11:43 11:43 PROTIME (+INR)+COAG.LAB.BRZ ordered. EDMS EDMS 11:44 11:43 PTT, ACTIVATED+COAG.LAB.BRZ ordered. EDMS EDMS 11:44 11:43 COVID-19 Ag + Flu A+B Ag+I.LAB.BRZ ordered. EDMS EDMS 11:44 11:44 Chest Single View+RAD.RAD.BRZ ordered. EDMS EDMS 13:07 12:52 Telemetry/MedSurg (Inpatient) toby bc6 13:07 12:52 toby rankin6 20:48 13:07 [facility] ER HOLD bc6 cg 20:48 13:07 ERHOLD- 6 cg
--- NOTE | 2024-04-25 12:53 | ER ---
Nurse's Notes [facility] Name: Clay Hernández Age: 83 yrs Sex: Male : 1940 Arrival Date: 04/25/2024 Time: 11:11 Bed 3 Private MD: Diagnosis: Pneumonia, unspecified organism;Hypoxemia Presentation: 04/25 11:38 Chief complaint: Patient states: sob, cough and chills that began yesterday. Pt reports ss his has been ill in the hospital and he has not been taking good care of himself lately. Has not taken home medications in 3 days. Coronavirus screen: Client denies travel out of the [place] in the last 14 days. Ebola Screen: Patient denies exposure to infectious person. Patient denies travel to an Ebola-affected area in the 21 days before illness onset. Initial Sepsis Screen: Does the patient meet any 2 criteria? No. Patient's initial sepsis screen is negative. Does the patient have a suspected source of infection? No. Patient's initial sepsis screen is negative. Risk Assessment: Do you want to hurt yourself or someone else? Patient reports no desire to harm self or others. Onset of symptoms was April 24, 2024. 11:38 Method Of Arrival: Ambulatory ss 11:38 Acuity: GLORY 2 ss Triage Assessment: 11:45 General: Appears in no apparent distress. comfortable, Behavior is cooperative, bp appropriate for age, anxious. Pain: Complains of pain in chest. EENT: No deficits noted. Neuro: No deficits noted. Cardiovascular: Reports chest pain. Respiratory: Reports shortness of breath Onset: The symptoms/episode began/occurred today, the patient has mild shortness of breath. GI: No signs and/or symptoms were reported involving the gastrointestinal system. : No signs and/or symptoms were reported regarding the genitourinary system. Derm: No deficits noted. Musculoskeletal: No deficits noted. Historical: - Allergies: 11:41 No Known Allergies; ss - PMHx: 11:41 Bladder cancer; CAD; Cancer; High Cholesterol; Hypertension; Parkinsons; Kidney stones; ss - Immunization history:: Adult Immunizations up to date. - Infectious Disease History:: Denies. - Social history:: Smoking status: Patient reports the use of cigarette tobacco products, smokes one-half pack cigarettes per day. - Family history:: not pertinent. - Hospitalizations: : No recent hospitalization is reported. Screenin:45 [facility] ED Fall Risk Assessment (Adult) History of falling in the last 3 months, bp including since admission No falls in past 3 months (0 pts) Confusion or Disorientation No (0 pts) Intoxicated or Sedated No (0 pts) Impaired Gait No (0 pts) Mobility Assist Device Used No (0 pt) Altered Elimination No (0 pt) Score/Fall Risk Level 0 - 2 = Low Risk Oriented to surroundings. Abuse screen: Denies threats or abuse. Denies injuries from another. Nutritional screening: No deficits noted. Tuberculosis screening: No symptoms or risk factors identified. Assessment: 11:45 General: Appears in no apparent distress. Behavior is calm, cooperative, appropriate bp for age. 13:00 Reassessment: No changes from previously documented assessment. Patient is alert, bp oriented x 3, equal unlabored respirations, skin warm/dry/pink. Cardiovascular: Rhythm is sinus rhythm. Respiratory: Airway is patent Respiratory effort is even, Breath sounds with crackles bilaterally. Vital Signs: 11:38 BP 165 / 111; Pulse 89; Resp 22; Temp 97.5(O); Pulse Ox 93% on R/A; Weight 68.04 kg; ss Height 5 ft. 9 in. ; Pain 10/10; 12:35 BP 154 / 87; Pulse 76; Pulse Ox 100% on R/A; rs6 11:38 Body Mass Index 22.15 (68.04 kg, 175.26 cm) ss 11:38 Pain Scale: Adult ss ED Course: 11:14 Patient arrived in ED. mr 11:22 Aleks Haq MD is Attending Physician. rn 11:41 Triage completed. ss 11:41 Arm band placed on left wrist. ss 11:44 Leonardo Zamorano, RN is Primary Nurse. bp 11:45 Patient has correct armband on for positive identification. bp 11:45 Initial lab(s) drawn, by de, sent to lab. First set of blood cultures drawn by me, bp Second set of blood cultures drawn by de, EKG done, by ED staff, reviewed by Leonardo Zamorano RN. 11:58 Inserted saline lock: 22 gauge in right forearm, using aseptic technique. Blood bp collected. Flushed with 10 mL NS. 12:05 Chest Single View XRAY In Process Unspecified. EDMS 12:52 Tejas Chaudhry MD is Hospitalizing Provider. rn 17:19 No provider procedures requiring assistance completed. Patient admitted, IV remains in bp place. 20:57 Provided Education on: admission education. dd2 Administered Medications: 12:15 Drug: Levalbuterol Inhalation 1.25 mg Inhalation once Route: Inhalation; bp 13:15 Drug: Rocephin IV 1 grams IV at calculated rate once; Given slow IV push per pharmacy bp instructions Route: IV; Rate: calculated rate; Site: right forearm; 17:19 Follow up: IV Status: Completed infusion bp 13:15 Drug: Zithromax IVPB 500 mg IVPB once over 1 hrs; mix in 250 mL NS Route: IVPB; Infused bp Over: 1 hrs; Site: right forearm; 17:19 Follow up: IV Status: Completed infusion bp Medication: 20:58 VIS not applicable for this client. dd2 Outcome: 12:52 Decision to Hospitalize by Provider. rn 19:15 Admitted to ER Hold. Please see [facility] for further documentation. dd2 19:15 Condition: stable 19:15 Instructed on the need for admit, Demonstrated understanding of instructions, 22:10 Patient left the ED. dd2 Signatures: Dispatcher [employer] EDID ReynoldsClaudia ureña, Reg Reg mr Aleks Haq MD MD rn Blanchard, Shelby, RN RN ss Peltier, Brian, RN RN bp DAVIS, DIANA, RN RN dd2 Shadi Lacey rs6 Corrections: (The following items were deleted from the chart) 11:42 11:41 PMHx: Cancer; [facility]
[2024-04-25] MEDS ORDERED: IPRATROPIUM BROM 0.5MG/2.5ML NEB PRN (13:11)
[2024-04-25] MEDS ORDERED: ALBUTEROL 2.5 MG/3 ML NEB SOL NEB PRN (13:11)
[2024-04-25] MEDS ORDERED: NA CHLORIDE 0.9% 250 ML ONE (13:29)
[2024-04-25] MEDS ORDERED: AZITHROMYCIN 500 MG INJ IVPB ONE (13:29)
[2024-04-25] MEDS ORDERED: CEFTRIAXONE 1000 MG/VIAL ONE (13:29)
[2024-04-25] MEDS: Levofloxacin 750mg IV 750 MG/150 ML BAG IV SCH (14:00)
[2024-04-25 17:17] VITALS: BMI 22.1
--- NOTE | 2024-04-25 17:52 | P.HP ---
Patient History Date of Service: 04/25/24 Reason for admission: SHORT OF BREATH History of Present Illness: CARRIE IS A PATIENT WITH SEVERE ARTHRITIS, KYPHOSIS AND COMES WITH DYSPNEA AND FEVER. HE HAS PNEUMONIA ON X RAY. Allergies No Known Allergies Allergy (Verified 11/02/22 10:22) Home Medications: Aspirin [Aspirin EC] 81 mg PO DAILY 07/19/14 Atorvastatin Calcium [Lipitor] 80 mg PO DAILY 07/19/14 Finasteride [Proscar*] 5 mg PO DAILY 07/19/14 Venlafaxine HCl [Effexor XR] 150 mg PO DAILY 07/19/14 Carbidopa/Levodopa [Carbidopa-Levo 25-100 mg Odt] 2 tab PO DAILY 02/19/16 Losartan Potassium 100 mg PO DAILY 02/19/16 Magnesium Oxide [Mgo] 800 mg PO DAILY 03/26/16 - Past Medical/Surgical History Has patient received pneumonia vaccine in the past: Yes Diabetic: No -: BPH -: HTN -: high cholesterol -: GERD -: chronic pain -: macular degenerative disease -: parkinsons -: Bladder CA -: T &A - Family History Mother -: Hypertension, Cancer Father -: Heart disease, Hypertension - Social History Smoking Status: Unknown if ever smoked Alcohol use: No CD- Drugs: No Caffeine use: Yes Place of Residence: Home Review of Systems 10-point ROS is otherwise unremarkable General: Weakness, As per HPI Respiratory: Cough, Shortness of Breath Physical Examination - Vital Signs Blood Pressure: 147/88 Pulse: 71 Respirations: 18 Pulse Ox (%): 95 - Physical Exam General: Oriented x3, Mild distress, Moderate distress, Obese HEENT: Atraumatic, PERRLA, Mucous membr. moist/pink, EOMI, Sclerae nonicteric Neck: Supple, 2+ carotid pulse no bruit, No LAD, Without JVD or thyroid abnormality Respiratory: Diminished, Rhonchi/gurgles Cardiovascular: Regular rate/rhythm, Normal S1 S2 Gastrointestinal: Normal bowel sounds, No tenderness Musculoskeletal: No tenderness Integumentary: No rashes Neurological: Normal gait, Normal speech, Normal strength at 5/5 x4 extr, Normal tone, Normal affect Lymphatics: No axilla or inguinal lymphadenopathy - Studies Laboratory Data (last 24 hrs) 04/25/24 04/25/24 04/25/24 12:00 12:00 12:00 WBC 7.90 Hgb 14.5 Hct 41.9 Plt Count 232 PT 12.2 INR 1.07 APTT 35.1 Sodium 136 Potassium 4.2 BUN 17 Creatinine 1.13 Glucose 123 H Total Bilirubin 0.5 AST 21 ALT < 14 L Alkaline Phosphatase 97 Assessment and Plan - Problems (Diagnosis) (1) Bacterial pneumonia Current Visit: Yes Status: Acute Plan: LEVAQUIN IV SPUTUM CS NEBS (2) Acute bronchiolitis Current Visit: Yes Status: Acute Plan: NEBS DAILY LAB. - Advance Directives Does patient have a Living Will: No Does patient have a Durable POA for Healthcare: No
[2024-04-25] MEDS ORDERED: IPRATROPIUM BROM 0.5MG/2.5ML ONE (20:49)
[2024-04-25] MEDS ORDERED: ALBUTEROL 2.5 MG/3 ML NEB SOL ONE (20:49)
[2024-04-25] MEDS ORDERED: ARFORMOTEROL TARTRATE 15 MCG/2 ML VIAL.NEB ONE (20:49)
[2024-04-26 05:41] LABS: Absolute Eosinophils 0.1 K/uL (0-0.5); Absolute Lymphocytes (CBC) 0.9 K/uL (0.7-4.9); Absolute Monocytes 0.6 K/uL (0.1-1.3); Absolute Neutrophil 7.1 K/uL (1.8-8.0); Basophils % 0.3 % (0-1.3); Eosinophils % 0.6 % (0-4.4); Hematocrit 39.3 % (39.6-49.0); Hemoglobin 13.4 g/dL (13.6-17.9); Lymphocytes % 10.5 % (15.3-44.8); MCH 32.5 pg (27.0-35.0); MCV 95.6 fL (80-100); Monocytes % 6.6 % (3.3-12.3); Nucleated Red Blood Cells % 0.1 % (0-0); Platelets 242 thou/uL (152-406); RBC Red Blood Cell Count 4.11 M/uL (4.33-5.43); Red Cell Distribution Width 13.1 % (12.1-15.2)
[2024-04-26 05:50] LABS: Anion Gap 10.9 mEq/L (5.0-15.0); Potassium 3.9 mEq/L (3.5-5.1)
[2024-04-26] MEDS: ACETAMINOPHEN 500 MG TAB PO PRN (06:06)
[2024-04-26] MEDS: VENLAFAXINE HCL XR 75 MG CAP PO SCH ×2 (08:32→08:33)
[2024-04-26] MEDS: METHYLPREDNISOLONE 40 MG INJ IV SCH (08:32)
[2024-04-26] MEDS: FINASTERIDE 5 MG TAB PO SCH ×2 (09:00→12:23)
[2024-04-26] MEDS: ATORVASTATIN 80 MG TAB PO SCH ×2 (09:00→12:24)
--- NOTE | 2024-04-26 11:05 | EKG ---
Test Date: 2024-04-25 Test Time: 11:58:34 Director Sales And Marketing: MAKI MEASUREMENT RESULTS: Intervals: Rate: 78 MT: 126 QRSD: 98 QT: 406 QTc: 462 [place]: P: -22 MT: 126 QRS: 15 T: 37 INTERPRETIVE STATEMENTS: Sinus rhythm with premature atrial complexes Otherwise normal ECG Compared to ECG 11/02/2022 10:31:14 Short MT interval no longer present Electronically Signed On 04-26-24 11:03:58 TUBE BENDER HAND by Vitor Rojas
--- NOTE | 2024-04-26 11:08 | RAD REPORT ---
EXAM: CT Chest For Pe Angio TECHNIQUE: CT angiogram of the chest was performed following intravenous contrast administration, inc luding sagittal and coronal as well as maximum intensity projection reformats. One or more of the following dose reduction techniques were used: Automated exposure control, adjustment of the mA and k V according to patient size, and iterative reconstruction. Unless otherwise specified, incidental findings do not require dedicated imaging follow-up. INDICATION: HYPOXIA Y COMPARISON: 05/10/2020 CT chest. Chest radiograph of the previous day. FINDINGS: LINES/TUBES: None. PULMONARY ARTERIES: Main pulmonary arteries are normal in caliber. No filling defects within the pul monary arteries to suggest pulmonary embolus. LUNGS AND AIRWAYS: Moderate centrilobular emphysematous changes more pronounced in the left upper lob e. Postsurgical changes on the right, suggesting sequelae of at least partial lobectomy. Scattered groundglass opacities including nodular subpleural 12 mm opacity along the anterior left lower lobe, and scattered right basal dependent groundglass opacities. PLEURA: No effusion or pneumothorax. HEART AND MEDIASTINUM: The visualized thyroid gland is normal. Upper limit of normal caliber of the a scending thoracic aorta, measuring 4 cm. No mediastinal, hilar, or axillary lymphadenopathy. Heart is unremarkable. No pericardial effusion. SOFT TISSUES AND BONES: No acute osseous abnormality. No significant soft tissue finding. UPPER ABDOMEN: Unremarkable. IMPRESSION: No evidence of acute central pulmonary emboli. Bilateral groundglass opacities as above, may reflect a mild infectious or inflammatory process. Given the findings of pulmonary emphysematous changes mentioned above, please correlate clinically fo r a formal diagnosis of pulmonary emphysema. Pulmonary emphysema is considered an independent risk factor for lung cancer, consider evaluating the patient for a low dose CT lung cancer screening progr am.
[2024-04-26] MEDS: FLU (Fluarix Triv) TS24-25(6MOS UP)/PF 45 MCG/0.5 ML Syringe IM ONE (12:00)
[2024-04-26] MEDS: LOSARTAN POTASSIUM 50 MG TABLET PO SCH (12:23)
--- NOTE | 2024-04-26 12:30 | P.PN ---
Subjective Date of Service: 04/26/24 Chief Complaint: SHORT OF BREATH Subjective: No new changes HE IS SHORT OF BREATH. HE DID GET AN ANTIBIOTIC ONCE IN ER. HE IS ANGRY HE WANTS MORE. I EXPLAINED THAT ANTIBIOTIC IS ONLY ONCE EVERY OTHER DAY IT IS A LONG ACTING ANTIBIOTIC. I TOLD NURSE TO GIVE SOLUMEDROL TO HELP WITH HIS WHEEZING AND ALSO NEBS. Review of Systems 10-point ROS is otherwise unremarkable General: Weakness Physical Examination - Vital Signs Temperature: 98.4 F Blood Pressure: 179/89 Pulse: 72 Respirations: 16 Pulse Ox (%): 99 - Physical Exam General: Oriented x3, Acute distress, Mild distress, Obese HEENT: Atraumatic, PERRLA, EOMI Neck: Supple, JVD not distended Respiratory: Diminished, Crackles/rales, Inspiratory wheezes Cardiovascular: Regular rate/rhythm, Normal S1 S2 Gastrointestinal: Normal bowel sounds, No tenderness Musculoskeletal: No tenderness Integumentary: No rashes Neurological: Normal speech, Normal tone, Normal affect Lymphatics: No axilla or inguinal lymphadenopathy - Studies Laboratory Data (last 24 hrs) 04/25/24 12:00 Sodium 136 Potassium 4.2 BUN 17 Creatinine 1.13 Glucose 123 H Total Bilirubin 0.5 AST 21 ALT < 14 L Alkaline Phosphatase 97 Medications List Reviewed: Yes Assessment And Plan - Current Problems (Diagnosis) (1) Bacterial pneumonia Current Visit: Yes Status: Acute Plan: LEVAQUIN IV SPUTUM CS NEBS CONT ABX ADD STEROIDS FOR BRONCHITIS COMPONENT. (2) Acute bronchiolitis Current Visit: Yes Status: Acute Plan: NEBS DAILY LAB. (3) HTN (hypertension) Current Visit: Yes Status: Chronic Plan: CONT MEDS. PRN CLONIDINE.
[2024-04-26] MEDS: cloNIDine HCL 0.1 MG TAB PO PRN (12:37)
[2024-04-26] MEDS: ALBUTEROL 2.5 MG/3 ML NEB SOL NEB PRN (12:40)
[2024-04-26] MEDS: IPRATROPIUM BROM 0.5MG/2.5ML NEB PRN (12:40)
[2024-04-26] MEDS: Levofloxacin 750mg IV 750 MG/150 ML BAG IV SCH (15:23)
[2024-04-26] MEDS: ENOXAPARIN 30 MG/0.3 ML SQ SCH (17:38)
[2024-04-26] MEDS: PNEUMOCOCCAL VACCINE 0.5 ML IMVAC ONE (18:00)
[2024-04-27] MEDS: CARBIDOPA LEVO PO SCH (09:00)
[2024-04-27] MEDS ORDERED: Levofloxacin500mg IV 500 MG/100 ML BAG IV SCH (09:00)
[2024-04-27] MEDS ORDERED: LOSARTAN POTASSIUM 50 MG TABLET PO SCH (09:00)
[2024-04-27] MEDS: ASPIRIN EC 81 MG TAB PO SCH (09:24)
[2024-04-27] MEDS: Levofloxacin500mg IV 500 MG/100 ML BAG IV SCH (09:24)
[2024-04-27] MEDS: MAGNESIUM OXIDE 400 MG TAB PO SCH (09:25)
[2024-04-27] MEDS: VENLAFAXINE HCL XR 75 MG CAP PO SCH (09:26)
[2024-04-27] MEDS: FAMOTIDINE 20 MG TAB PO SCH (09:26)
[2024-04-27 23:14] VITALS: O2SAT 94
[2024-04-28 08:36] VITALS: BP 138/94; TEMP 98.2
--- NOTE | 2024-04-28 12:58 | P.PN ---
Subjective Date of Service: 04/27/24 Chief Complaint: SHORT OF BREATH Subjective: Improving HE IS SHORT OF BREATH. HE DID GET AN ANTIBIOTIC ONCE IN ER. HE IS ANGRY HE WANTS MORE. I EXPLAINED THAT ANTIBIOTIC IS ONLY ONCE EVERY OTHER DAY IT IS A LONG ACTING ANTIBIOTIC. I TOLD NURSE TO GIVE SOLUMEDROL TO HELP WITH HIS WHEEZING AND ALSO NEBS. HE IS SOMEBETER AND LESS CRANKY TODAY. Review of Systems 10-point ROS is otherwise unremarkable General: Weakness Physical Examination - Vital Signs Temperature: 98.2 F Blood Pressure: 138/94 Pulse: 74 Respirations: 20 Pulse Ox (%): 93 - Physical Exam General: Mild distress HEENT: Atraumatic, PERRLA, EOMI Neck: Supple, JVD not distended Respiratory: Diminished, Rhonchi/gurgles Cardiovascular: Regular rate/rhythm, Normal S1 S2 Gastrointestinal: Normal bowel sounds, No tenderness Musculoskeletal: No tenderness Integumentary: No rashes Neurological: Normal speech, Normal tone, Normal affect Lymphatics: No axilla or inguinal lymphadenopathy - Studies Medications List Reviewed: Yes Assessment And Plan - Current Problems (Diagnosis) (1) Bacterial pneumonia Status: Acute Plan: LEVAQUIN IV SPUTUM CS NEBS CONT ABX ADD STEROIDS FOR BRONCHITIS COMPONENT. (2) Acute bronchiolitis Status: Acute Plan: NEBS DAILY LAB. (3) HTN (hypertension) Status: Chronic Plan: CONT MEDS. PRN CLONIDINE. (4) COPD exacerbation Status: Acute Plan: FORMER SMOKER AND GOT BACK ON SMOKING 4 YEARS AGO HE WILL QUIT NOW. CONT MEDS.
--- NOTE | 2024-04-28 12:59 | P.DS ---
Admission Date: 04/25/24 Discharge Date: 04/28/24 Disposition: ROUTINE DISCHARGE Discharge Condition: FAIR Reason for Admission: SHORT OF BREATH - Problems (1) Bacterial pneumonia Status: Acute (2) Acute bronchiolitis Status: Acute (3) HTN (hypertension) Status: Chronic (4) COPD exacerbation Status: Acute Brief History of Present Illness: CARRIE IS A PATIENT WITH SEVERE ARTHRITIS, KYPHOSIS AND COMES WITH DYSPNEA AND FEVER. HE HAS PNEUMONIA ON X RAY. Hospital Course: CARRIE IS A COPD PATIENT WHO IS A SMOKER AND HAS DEPRRESSION WITH DJD. HE IMPROVOED ON SEROIDS, LEVAQUIN,NEBS HE HAS EARLY PNEUMONIA ALSO. HE IS STABLE FOR HOME I CALLED IN RX FROM OFFICE. LEVAQUIN AND STEROID TAPER. Vital Signs/Physical Exam: Temp Pulse Resp BP Pulse Ox 98.2 F 74 20 138/94 H 93 04/28/24 12:58 04/28/24 12:58 04/28/24 12:58 04/28/24 12:58 04/28/24 12:58 Laboratory Data at Discharge: WBC 8.60 thou/uL (4.3-10.9) 04/26/24 05:02 Hgb 13.4 g/dL (13.6-17.9) L 04/26/24 05:02 Hct 39.3 % (39.6-49.0) L 04/26/24 05:02 Plt Count 242 thou/uL (152-406) 04/26/24 05:02 PT 12.2 SECONDS (10.0-13.0) 04/25/24 12:00 INR 1.07 04/25/24 12:00 APTT 35.1 SECONDS (24.3-36.9) 04/25/24 12:00 Sodium 140 mEq/L (136-145) 04/26/24 05:02 Potassium 3.9 mEq/L (3.5-5.1) 04/26/24 05:02 BUN 15 mg/dL (7-18) 04/26/24 05:02 Creatinine 0.96 mg/dL (0.70-1.30) 04/26/24 05:02 Glucose 117 mg/dL (74-106) H 04/26/24 05:02 Total Bilirubin 0.5 mg/dL (0.2-1.0) 04/25/24 12:00 AST 21 U/L (15-37) 04/25/24 12:00 ALT < 14 U/L (16-61) L 04/25/24 12:00 Alkaline Phosphatase 97 U/L (45-117) 04/25/24 12:00 Home Medications: Aspirin [Aspirin EC] 81 mg PO DAILY 07/19/14 Atorvastatin Calcium [Lipitor] 80 mg PO DAILY 07/19/14 Finasteride [Proscar*] 5 mg PO DAILY 07/19/14 Venlafaxine HCl [Effexor XR] 150 mg PO DAILY 07/19/14 Carbidopa/Levodopa [Carbidopa-Levo 25-100 mg Odt] 2 tab PO DAILY 02/19/16 Losartan Potassium 100 mg PO DAILY 02/19/16 Magnesium Oxide [Mgo] 800 mg PO DAILY 03/26/16 Venlafaxine HCl [Effexor Xr] 04/25/24 Venlafaxine HCl [Effexor Xr] 75 mg PO 04/25/24 Physician Discharge Instructions: PROBLEM: (list out Acute Problems for the Current visit) GOAL: Clear understanding of disease process INSTRUCTIONS: Diet: heart healthy Activity: as tolerated follow up with PCP Followup: Tejas Chaudhry MD [Primary Care Provider] -
== END 2024-04-28 12:02 | disposition home or self-care (01) | DRG 194 ==
LOC: ER 11:11 → ERHOLD 13:02 → 2ND 21:29
PROVIDERS: ADMIT Internal Medicine; ATTEND Internal Medicine
DX: J15.9 Unspecified bacterial pneumonia (principal); J21.9 Acute bronchiolitis, unspecified; J44.1 Chronic obstructive pulmonary disease with (acute) exacerbation; J44.0 Chronic obstructive pulmonary disease with (acute) lower respiratory infection; E78.00 Pure hypercholesterolemia, unspecified; I10 Essential (primary) hypertension; F32.A Depression, unspecified; M40.209 Unspecified kyphosis, site unspecified; M19.90 Unspecified osteoarthritis, unspecified site; K21.9 Gastro-esophageal reflux disease without esophagitis; N40.0 Benign prostatic hyperplasia without lower urinary tract symptoms; G20.A1 Parkinson's disease without dyskinesia, without mention of fluctuations; I25.10 Atherosclerotic heart disease of native coronary artery without angina pectoris; F17.210 Nicotine dependence, cigarettes, uncomplicated; Z79.82 Long term (current) use of aspirin; Z11.52 Encounter for screening for COVID-19; Z85.51 Personal history of malignant neoplasm of bladder; Z79.899 Other long term (current) drug therapy
CPT/HCPCS: 36415; 71045; 71275; 80048; 80053; 82947; 83605; 85025; 85610; 85730; 87040; 87428; 93005; 94640; 94760; 96365; 96366; 96368; 99285; J0696; J1650; J2919; J7050; J7605; J7613; J7614; J7644; Q9967

== ENCOUNTER 2024-06-06 11:07 | Emergency (ER) | payer OTHER ==
[2024-06-06 12:16] LABS: Absolute Eosinophils 0.1 K/uL (0-0.5); Absolute Lymphocytes (CBC) 0.8 K/uL (0.7-4.9); Absolute Monocytes 0.5 K/uL (0.1-1.3); Absolute Neutrophil 5.2 K/uL (1.8-8.0); Basophils % 0.6 % (0-1.3); Eosinophils % 1.9 % (0-4.4); Hematocrit 40.3 % (39.6-49.0); Hemoglobin 13.9 g/dL (13.6-17.9); Lymphocytes % 11.9 % (15.3-44.8); MCH 33.3 pg (27.0-35.0); MCHC 34.5 g/dL (32.0-36.0); MCV 96.5 fL (80-100); MPV 6.7 fL (7.6-11.3); Monocytes % 6.9 % (3.3-12.3); Neutrophils % 78.7 % (41.7-73.7); Nucleated Red Blood Cells % 0.1 % (0-0); Platelets 230 thou/uL (152-406); RBC Red Blood Cell Count 4.18 M/uL (4.33-5.43); Red Cell Distribution Width 14.7 % (12.1-15.2)
[2024-06-06 12:36] LABS: ALT/SGPT 26 U/L (16-61); AST/SGOT 19 U/L (15-37); Albumin 3.3 g/dL (3.4-5.0); Albumin/Globulin Ratio 0.8 (1.1-1.8); Alkaline Phosphatase 84 U/L (45-117); Anion Gap 5.4 mEq/L (5.0-15.0); BUN Blood Urea Nitrogen 15 mg/dL (7-18); Bicarbonate 31 mEq/L (21-32); Bilirubin Total 0.4 mg/dL (0.2-1.0); Globulin 4.1 g/dL (2.3-3.5); Glomerular Filtration Rate 63 ml/min (=/>90); Glucose Level 149 mg/dL (74-106); NT PRO-BNP 226 pg/mL (<450); Potassium 4.4 mEq/L (3.5-5.1); Protein, Total 7.4 g/dL (6.4-8.2); Sodium Level 139 mEq/L (136-145)
[2024-06-06 12:37] LABS: Bilirubin Direct < 0.2 mg/dL (0-0.2); Bilirubin Indirect, Calculated 0.2 mg/dL (0.2-0.8)
[2024-06-06 12:43] LABS: Influenza A Ag Negative; Influenza B Ag Negative; SARS-CoV-2 Antigen Rapid Res Negative (Negative)
--- NOTE | 2024-06-06 12:49 | RAD REPORT ---
EXAMINATION: ONE VIEW CHEST XR CLINICAL INDICATION: DYSPNEA TECHNIQUE: Frontal chest projection is submitted. Examination is limited by patient positioning and t echnique. COMPARISON: 04/25/2024 FINDINGS: Emphysematous changes are present throughout both lung pederson. The heart is normal in size. No displa laurence fractures identified. IMPRESSION: COPD without an acute process suspected.
[2024-06-06] MEDS ORDERED: IPRATROPIUM BROM 0.5MG/2.5ML ONE (13:51)
[2024-06-06] MEDS ORDERED: ALBUTEROL 2.5 MG/3 ML NEB SOL ONE (13:51)
[2024-06-06] MEDS ORDERED: METHYLPREDNISOLONE 125 MG INJ ONE (13:52)
--- NOTE | 2024-06-06 14:52 | EDPHYS ---
Physician Documentation [facility] Name: Clay Hernández Age: 83 yrs Sex: Male : 1940 Arrival Date: 06/06/2024 Time: 11:07 Bed 26 Private MD: ED Physician Shadi Rock HPI: 06/06 12:02 This 83 yrs old Male presents to ER via Ambulatory with complaints of Painful Cough, rt Fever, Flu Symptoms. 12:02 Patient presents to the ED with productive cough, dyspnea, worse with exertion for the rt past 4 days. Reports that the symptoms are similar to when he was admitted with a pneumonia 1 month ago. Denies other acute complaints at this time, symptoms are moderate severity, no other aggravating alleviating factors.. Historical: - Allergies: 11:47 No Known Allergies; iw - Home Meds: 11:48 aspirin 81 mg Oral chew [Active]; atorvastatin 40 mg Oral tab [Active]; iw carbidopa-levodopa 25-100 mg Oral tab [Active]; finasteride 5 mg Oral tab [Active]; losartan 100 mg Oral tab [Active]; ranitidine HCl 150 mg Oral tab [Active]; venlafaxine 100 mg Oral tab [Active]; tizanidine 4 mg Oral tab [Active]; hydrocodone-acetaminophen 10-325 mg/15 mL(15 mL) Oral soln 15 mL every 6 hours [Active]; Combivent Inhl [Active]; - PMHx: 11:46 CAD; Bladder cancer; High Cholesterol; Kidney stones; Hypertension; Parkinsons; lung iw cancer; - Immunization history:: Adult Immunizations up to date. - Infectious Disease History:: Denies. - Social history:: Smoking status: Patient reports the use of cigarette tobacco products, smokes one-half pack cigarettes per day. - Family history:: not pertinent. ROS: 12:02 Constitutional: Negative for fever, chills, and weight loss, Cardiovascular: Negative rt for chest pain, palpitations, and edema, Abdomen/GI: Negative for abdominal pain, nausea, vomiting, diarrhea, and constipation, MS/Extremity: Negative for injury and deformity, Skin: Negative for injury, rash, and discoloration, Neuro: Negative for headache, weakness, numbness, tingling, and seizure, 12:02 Respiratory: Positive for cough, shortness of breath, wheezing, Exam: 12:02 Constitutional: This is a well developed, well nourished patient who is awake, alert, rt and in no acute distress. Chest/axilla: Normal chest wall appearance and motion. Nontender with no deformity. No lesions are appreciated. Cardiovascular: Regular rate and rhythm with a normal S1 and S2. No gallops, murmurs, or rubs. Normal PMI, no JVD. No pulse deficits. Abdomen/GI: Soft, non-tender, with normal bowel sounds. No distension or tympany. No guarding or rebound. No evidence of tenderness throughout. Skin: Warm, dry with normal turgor. Normal color with no rashes, no lesions, and no evidence of cellulitis. MS/ Extremity: Pulses equal, no cyanosis. Neurovascular intact. Full, normal range of motion. Neuro: Awake and alert, GCS 15, oriented to person, place, time, and situation. Cranial nerves II-XII grossly intact. Motor strength 5/5 in all extremities. Sensory grossly intact. Cerebellar exam normal. Normal gait. 12:02 ECG was reviewed by the Attending Physician. 12:02 Respiratory: Wheezes heard on all lung pederson, no respiratory distress, Vital Signs: 11:45 BP 134 / 98; Pulse 90; Resp 20; Temp 98.4; Pulse Ox 97% on R/A; Weight 67.59 kg; Height iw 5 ft. 9 in. ; Pain 7/10; 13:00 BP 153 / 91; Pulse 98; Resp 88; Pulse Ox 96% on R/A; kj2 14:00 BP 151 / 88; Pulse 64; Resp 18; Pulse Ox 98% ; kj2 15:20 BP 148 / 88; Pulse 91; Resp 20; Temp 98; Pulse Ox 98% ; kj2 11:45 Body Mass Index 22.00 (67.59 kg, 175.26 cm) iw 11:45 Pain Scale: Adult iw MDM: 11:47 Medical Screening Exam initiated rt 14:52 Differential Diagnosis: Other COPD exacerbation, pneumonia, CHF. Data reviewed: vital rt signs, nurses notes, lab test result(s), EKG, radiologic studies. Consideration of Admission/Observation Escalation of care including admission/observation considered. No hypoxia, symptoms significantly improving with treatment in the ED, stable for outpatient care, return precautions discussed.. I considered the following discharge prescriptions or medication management in the emergency department Medications were administered in the Emergency Department. See MAR. Independent interpretation of the following test(s) in the Emergency Department X-Ray: My interpretation is No infiltrate seen on interpretation of x-ray images. Test considered but Not performed: CT: Low suspicion for pulmonary embolus, CT angiogram not indicated. Care significantly affected by the following chronic conditions: Chronic Obstructive Pulmonary Disease. Counseling: I had a detailed discussion with the patient and/or guardian regarding the historical points, exam findings, and any diagnostic results supporting the discharge/admit diagnosis, lab results, radiology results, the need for outpatient follow up, to return to the emergency department if symptoms worsen or persist or if there are any questions or concerns that arise at home. Response to treatment: the patient's symptoms have markedly improved after treatment. 06/06 11:52 Order name: Basic Metabolic Panel; Complete Time: 12:52 rt 06/06 11:52 Order name: CBC with Diff; Complete Time: 12:52 rt 06/06 11:52 Order name: LFT's; Complete Time: 12:52 rt 06/06 11:52 Order name: NT PRO-BNP; Complete Time: 12:52 rt 06/06 11:52 Order name: Troponin HS; Complete Time: 12:52 rt 06/06 11:52 Order name: COVID-19 Ag + Flu A+B Ag; Complete Time: 12:52 rt 06/06 11:52 Order name: XRAY Chest (1 view); Complete Time: 12:52 rt 06/06 11:52 Order name: Cardiac monitoring; Complete Time: 14:24 rt 06/06 11:52 Order name: EKG - Nurse/Tech; Complete Time: 12:57 rt 06/06 11:52 Order name: IV Saline Lock; Complete Time: 12:07 06/06 11:52 Order name: Labs collected and sent; Complete Time: 12:07 06/06 11:52 Order name: O2 Per Protocol; Complete Time: 14:24 rt 06/06 11:52 Order name: O2 Sat Monitoring; Complete Time: 14:24 rt EC:02 Rate is 81 beats/min. Rhythm is regular, Normal Sinus Rhythm with PACs. QRS [place] is rt Normal. [place] interval is normal. QRS interval is normal. QT interval is normal. No Q waves. T waves are Normal. No ST changes noted. Interpreted by me. Administered Medications: 13:56 Drug: MethylPrednisoLONE IVP 125 mg IVP once Route: IVP; Site: right forearm; kj2 14:27 Follow up: Response: No adverse reaction kj2 13:57 Drug: Albuterol Inhalation 2.5 mg Inhalation once Route: Inhalation; kj2 14:27 Follow up: Response: No adverse reaction kj2 13:57 Drug: Ipratropium Inhalation Aerosol 0.5 mg Inhalation once Route: Inhalation; kj2 14:27 Follow up: Response: No adverse reaction kj2 Disposition Summary: 06/06/24 14:52 Discharge Ordered Notes: Location: Home rt Problem: new rt Symptoms: have improved rt Condition: Stable rt Diagnosis - COPD/ Chronic obstructive pulmonary disease, unspecified rt Followup: rt - With: Private Physician - When: 2 - 3 days - Reason: Discharge Instructions: - Discharge Summary Sheet rt - Chronic Obstructive Pulmonary Disease rt Forms: - Medication Reconciliation Form rt - Antibiotic Education rt - Prescription Opioid Use rt - Patient Portal Instructions rt - Leadership Thank You Letter rt Prescriptions: - Prednisone 20 mg Oral Tablet - take 2 tablets ORAL route once daily for 5 days; 10 tablet; Refills: 0, Product rt Selection Permitted Signatures: Dispatcher [employer] EDShaila Doe RN RN iw Shadi Rock MD MD rt Violet Ramriez RN RN kj2 Corrections: (The following items were deleted from the chart) 11:47 11:46 PMHx: Cancer; iw 11:47 11:46 PMHx: Cancer; [facility] 11:52 11:52 BASIC METABOLIC PANEL+C.LAB.BRZ ordered. EDMS EDMS 11:52 11:52 CBC+H.LAB.BRZ ordered. EDMS EDMS 11:52 11:52 HEPATIC FUNCTION+C.LAB.BRZ ordered. EDMS EDMS 11:52 11:52 PROBNP+C.LAB.BRZ ordered. EDMS EDMS 11:52 11:52 Troponin High Sensitivity+C.LAB.BRZ ordered. EDMS EDMS 11:52 11:52 COVID-19 Ag + Flu A+B Ag+I.LAB.BRZ ordered. EDMS EDMS 11:52 11:52 Chest Single View+RAD.RAD.BRZ ordered. EDMS EDMS
--- NOTE | 2024-06-06 14:52 | ER ---
Nurse's Notes [facility] Name: Clay Hernández Age: 83 yrs Sex: Male : 1940 Arrival Date: 06/06/2024 Time: 11:07 Bed 26 Private MD: Diagnosis: COPD/ Chronic obstructive pulmonary disease, unspecified Presentation: 06/06 11:45 Chief complaint: Patient states: productive cough, chills, fever, started 4 days ago , iw SOB on exertion. Coronavirus screen: Client presents with at least one sign or symptom that may indicate coronavirus-19. Ebola Screen: No symptoms or risks identified at this time. Initial Sepsis Screen: Does the patient meet any 2 criteria? No. Patient's initial sepsis screen is negative. Does the patient have a suspected source of infection? No. Patient's initial sepsis screen is negative. Risk Assessment: Do you want to hurt yourself or someone else? Patient reports no desire to harm self or others. Onset of symptoms was June 02, 2024. 11:45 Method Of Arrival: Ambulatory iw 11:45 Acuity: GLORY 3 iw Triage Assessment: 14:25 General: Appears in no apparent distress. Behavior is cooperative. Pain: Complains of kj2 pain in throat. Historical: - Allergies: 11:47 No Known Allergies; iw - Home Meds: 11:48 aspirin 81 mg Oral chew [Active]; atorvastatin 40 mg Oral tab [Active]; iw carbidopa-levodopa 25-100 mg Oral tab [Active]; finasteride 5 mg Oral tab [Active]; losartan 100 mg Oral tab [Active]; ranitidine HCl 150 mg Oral tab [Active]; venlafaxine 100 mg Oral tab [Active]; tizanidine 4 mg Oral tab [Active]; hydrocodone-acetaminophen 10-325 mg/15 mL(15 mL) Oral soln 15 mL every 6 hours [Active]; Combivent Inhl [Active]; - PMHx: 11:46 CAD; Bladder cancer; High Cholesterol; Kidney stones; Hypertension; Parkinsons; lung iw cancer; - Immunization history:: Adult Immunizations up to date. - Infectious Disease History:: Denies. - Social history:: Smoking status: Patient reports the use of cigarette tobacco products, smokes one-half pack cigarettes per day. - Family history:: not pertinent. Screenin:00 [facility] ED Fall Risk Assessment (Adult) History of falling in the last 3 months, kj2 including since admission No falls in past 3 months (0 pts) Confusion or Disorientation No (0 pts) Intoxicated or Sedated No (0 pts) Impaired Gait No (0 pts) Mobility Assist Device Used No (0 pt) Altered Elimination No (0 pt) Score/Fall Risk Level 0 - 2 = Low Risk Maintained a safe environment, Hourly rounding (assess needs \T\ fall precautionary measures) done. Abuse screen: Denies threats or abuse. Denies injuries from another. Nutritional screening: No deficits noted. Tuberculosis screening: No symptoms or risk factors identified. Assessment: 13:00 Reassessment: Patient appears in no apparent distress at this time. Patient and/or kj2 family updated on plan of care and expected duration. Pain level reassessed. Patient is alert, oriented x 3, equal unlabored respirations, skin warm/dry/pink. 14:00 Reassessment: Patient appears in no apparent distress at this time. Patient and/or kj2 family updated on plan of care and expected duration. Pain level reassessed. Patient is alert, oriented x 3, equal unlabored respirations, skin warm/dry/pink. 15:20 Reassessment: Patient appears in no apparent distress at this time. Patient and/or kj2 family updated on plan of care and expected duration. Pain level reassessed. Patient is alert, oriented x 3, equal unlabored respirations, skin warm/dry/pink. Vital Signs: 11:45 BP 134 / 98; Pulse 90; Resp 20; Temp 98.4; Pulse Ox 97% on R/A; Weight 67.59 kg; Height iw 5 ft. 9 in. ; Pain 7/10; 13:00 BP 153 / 91; Pulse 98; Resp 88; Pulse Ox 96% on R/A; kj2 14:00 BP 151 / 88; Pulse 64; Resp 18; Pulse Ox 98% ; kj2 15:20 BP 148 / 88; Pulse 91; Resp 20; Temp 98; Pulse Ox 98% ; kj2 11:45 Body Mass Index 22.00 (67.59 kg, 175.26 cm) iw 11:45 Pain Scale: Adult iw ED Course: 11:09 Patient arrived in ED. im 11:21 Shadi Rock MD is Attending Physician. rt 11:46 Triage completed. iw 11:48 Arm band placed on. iw 12:07 COVID-19 Ag + Flu A+B Ag Sent. bc6 12:07 Basic Metabolic Panel Sent. bc6 12:07 CBC with Diff Sent. bc6 12:07 LFT's Sent. bc6 12:07 NT PRO-BNP Sent. bc6 12:07 Troponin HS Sent. bc6 12:08 Initial lab(s) drawn, by me, sent to lab. Inserted saline lock: 20 gauge in right bc6 antecubital area, using aseptic technique. Blood collected. Flushed with 10 mL NS. 12:37 XRAY Chest (1 view) In Process Unspecified. EDMS 13:00 Patient has correct armband on for positive identification. Bed in low position. Call kj2 light in reach. Provided Education on: call light. 13:41 Violet Ramirez, RN is Primary Nurse. kj2 15:21 No provider procedures requiring assistance completed. IV discontinued, intact, kj2 bleeding controlled, No redness/swelling at site. Pressure dressing applied. Administered Medications: 13:56 Drug: MethylPrednisoLONE IVP 125 mg IVP once Route: IVP; Site: right forearm; kj2 14:27 Follow up: Response: No adverse reaction kj2 13:57 Drug: Albuterol Inhalation 2.5 mg Inhalation once Route: Inhalation; kj2 14:27 Follow up: Response: No adverse reaction kj2 13:57 Drug: Ipratropium Inhalation Aerosol 0.5 mg Inhalation once Route: Inhalation; kj2 14:27 Follow up: Response: No adverse reaction kj2 Medication: 13:00 VIS not applicable for this client. kj2 Outcome: 14:52 Discharge ordered by . rt 15:21 Discharged to home ambulatory, kj2 15:21 Condition: stable 15:21 Discharge instructions given to patient, family, Instructed on discharge instructions, follow up and referral plans. Demonstrated understanding of instructions, follow-up care, 15:40 Patient left the ED. kj2 Signatures: Dispatcher [employer] Shaila Lopez, RN RN Shadi Rock MD MD rt Shannon Michaud 6 Becky Nicole Violet Ramirez, TOBY RN kj2 Corrections: (The following items were deleted from the chart) 11:47 11:46 PMHx: Cancer; iw iw 11:47 11:46 PMHx: Cancer; iw iw
[2024-06-06 16:17] VITALS: O2SAT 98
[2024-06-06 16:19] VITALS: BP 148/88; TEMP 98
== END 2024-06-06 15:40 | disposition home or self-care (01) ==
LOC: ER 11:07
DX: J44.9 Chronic obstructive pulmonary disease, unspecified (principal); I10 Essential (primary) hypertension; E78.00 Pure hypercholesterolemia, unspecified; G20.A1 Parkinson's disease without dyskinesia, without mention of fluctuations; Z11.52 Encounter for screening for COVID-19; Z79.82 Long term (current) use of aspirin
CPT/HCPCS: 93005; 85025; 80048; 36415; 80076; 84484; 83880; 71045; 87428; J7613; J7644; J2919